=== PATIENT | male | born 1955 | race Caucasian/White ===

== ENCOUNTER → 2019-06-19 | Outpatient (CLI) | payer BC | LOC: GMAE 10:54 | PROVIDERS: ATTEND Family Medicine | DX: Z00.00 Encounter for general adult medical examination without abnormal findings (principal); R97.20 Elevated prostate specific antigen [PSA] ==

== ENCOUNTER 2019-07-06 05:20 | Day surgery (SDC) | payer BC ==
[2019-07-06] MEDS ORDERED: PROPOFOL 200 MG/20 ML VIAL IV ONE (07:00)
[2019-07-06] MEDS ORDERED: LIDOCAINE 1% 10 ML VIAL INJ ONE (07:00)
[2019-07-06] MEDS ORDERED: LACTATED RINGERS 1,000 ML ONE (07:07)
[2019-07-06] MEDS ORDERED: MIDAZOLAM INJ 2 MG/2 ML VIAL ONE (10:53)
--- NOTE | 2019-07-06 13:21 | OP ---
DATE OF PROCEDURE: 07/06/19 PREOPERATIVE DIAGNOSIS: 1. Needing colonoscopy. POSTOPERATIVE DIAGNOSIS: 1. Needing colonoscopy. PROCEDURE: 1. Colonoscopy with rectal biopsy. SURGEON: Rodger Dc MD ANESTHESIA: General and local. FINDINGS: Intubated the cecum without difficulty. The entire colon was examined and no significant polyps were seen. There was some irregular in the mucosa on a fold in the mid-rectum, which was biopsied. COMPLICATIONS: None. ESTIMATED BLOOD LOSS: None. CONDITION: Stable. PLAN: Discharge. INDICATION: As stated. PROCEDURE: General anesthesia was induced. Digital rectal exam was normal. The scope was passed without difficulty to the cecum identifying the appendiceal orifice. Upon careful withdrawal, no significant polyps were seen. Right on the mid-verge in the rectum at about 7 cm, on the mucosal fold appeared a possible flat polyp. We changed light intensity and there was a difference. This could just be the transition in the rectum, but it was suspicious enough that I took 2 random biopsies there. Otherwise, everything looked good. Retroflexion was normal. Small hemorrhoid. He tolerated the procedure and was awakened and taken to Recovery to be discharged. #[id number] [facility]
[2019-07-06 14:34] VITALS: BP 126/75; TEMP 97.3; O2SAT 98
== END 2019-07-06 12:20 | disposition home or self-care (01) ==
LOC: AMB 05:20
PROVIDERS: ATTEND Surgery
DX: Z12.11 Encounter for screening for malignant neoplasm of colon (principal); D12.8 Benign neoplasm of rectum; I10 Essential (primary) hypertension; Z82.49 Family history of ischemic heart disease and other diseases of the circulatory system; Z87.891 Personal history of nicotine dependence; Z79.899 Other long term (current) drug therapy
CPT/HCPCS: 00811; 45380; J2250; J3490; J7120

== ENCOUNTER → 2020-08-21 | Outpatient (CLI) | payer BC | LOC: GMAE 10:41 | PROVIDERS: ATTEND Family Medicine | DX: Z00.00 Encounter for general adult medical examination without abnormal findings (principal) ==